=== PATIENT | female | born 1975 | race Caucasian/White ===

== ENCOUNTER 2019-03-18 01:20 | Emergency (ER) | payer OTHER ==
[2019-03-18] MEDS ORDERED: Ondansetron PF 4 MG/2 ML Vial ONE ×2 (01:40→02:17)
[2019-03-18] MEDS ORDERED: Sodium Chloride 0.9% 1,000 ML ONE ×2 (01:40→04:51)
[2019-03-18] MEDS ORDERED: Ketorolac Tromethamine 30 MG/ML VIAL ONE (01:50)
[2019-03-18] MEDS ORDERED: Morphine 4 MG/ML VIAL ONE (02:12)
[2019-03-18 02:13] LABS: ALT (SGPT) 42 U/L (8-55); AST (SGOT) 24 U/L (5-34); Albumin 5.1 g/dL (3.5-5.0); Anion Gap 20 mmol/L (10-20); BHCG - Serum Negative (NEGATIVE); BUN (Urea Nitrogen) 21 mg/dL (7.0-18.7); Bilirubin, Total 0.3 mg/dL (0.2-1.2); Calc. Creatinine Clearance 0 mL/min (70-130); Calcium 10.7 mg/dL (7.8-10.44); Carbon Dioxide 24 mmol/L (22-29); Chloride 97 mmol/L (98-107); Estimated GFR-MDRD 51; Glucose 245 mg/dL (70-105); Lipase 46 U/L (8-78); Pregs Control Background? CLEAR/WHITE (CLR/WHITE); Pregs Control Bar Appear? YES (CONTROL BAR); Protein, Total 9.1 g/dL (6.0-8.3); Sodium 138 mmol/L (136-145)
[2019-03-18 02:15] LABS: Hemoglobin 15.4 g/dL (12.0-16.0); Mean Corpuscular HGB CONC 33.1 g/dL (32.0-36.0); Mean Corpuscular Hemoglobin 29.9 pg (27.0-31.0); Mean Corpuscular Volume 90.3 fL (78.0-98.0); Mean Platelet Volume 7.6 fL (7.4-10.4); Platelet Count 250 thou/uL (130-400); Potassium 2.6 mmol/L (3.5-5.1); RBC Distribution Width 11.3 % (11.5-14.5); Red Blood Cell (RBC) Count 5.15 mill/uL (4.20-5.40)
[2019-03-18 02:20] LABS: Manual Diff?? YES
[2019-03-18 02:21] LABS: Band 8 % (5-11); Delete Auto Diff?? YES; Lymphocytes 12 % (21-51); MDiff Complete? YES; Monocytes 1 % (0-10); Neutrophil 79 % (42-75)
[2019-03-18] MEDS ORDERED: Potassium Chloride 20 MEQ TAB ONE ×2 (02:27→04:51)
[2019-03-18 02:31] LABS: Alkaline Phosphatase 146 U/L (40-150)
[2019-03-18] MEDS ORDERED: Loperamide HCl 2 MG CAP ONE (05:12)
[2019-03-18 06:06] LABS: Anion Gap 13 mmol/L (10-20)
[2019-03-18 06:09] LABS: BUN (Urea Nitrogen) 26 mg/dL (7.0-18.7); Calc. Creatinine Clearance 0 mL/min (70-130); Calcium 8.2 mg/dL (7.8-10.44); Carbon Dioxide 24 mmol/L (22-29); Chloride 106 mmol/L (98-107); Estimated GFR-MDRD 73; Glucose 124 mg/dL (70-105); Potassium 2.9 mmol/L (3.5-5.1); Sodium 140 mmol/L (136-145)
--- NOTE | 2019-03-18 07:34 | CT ---
PRELIMINARY REPORT: CT Abdomen and Pelvis With Contrast EXAM DATE/TIME: 03/18/2019 3:30 AM CLINICAL HISTORY: 44 years old, female; Abdominal pain; Patient HX: Epigastric sleeve. PT having epigastric pain TECHNIQUE: Imaging protocol: Axial computed tomography images of the abdomen and pelvis with intravenous contrast. Radiation optimization: All CT scans at this facility use at least one of these dose optimization techniques: automated exposure control; mA and/or kV adjustment per patient size (includes targeted exams where dose is matched to clinical indication); or iterative reconstruction. Contrast material: ISOVUE 370; Contrast volume: 96 ml; Contrast route: RT ARM; COMPARISON: No relevant prior studies available. FINDINGS: Lungs: The visualized portions of the lung bases are normal. ABDOMEN: Liver: There are no focal liver lesions identified. Gallbladder and bile ducts: There has been a cholecystectomy. There is a mild, expected degree of intrahepatic and common bile duct dilation. Pancreas: The pancreas appears normal. No ductal dilatation. Spleen: The spleen is normal. Adrenals: The adrenal glands are normal. Kidneys and ureters: The kidneys appear normal. No hydronephrosis. Stomach and bowel: Patient may be post with sleeve gastrectomy. Remaining stomach is normal. The duodenum is unremarkable. There is marked intraluminal fluid within the colon suggestive of diarrheal illness. Appendix: A normal appendix is identified. PELVIS: Bladder: The bladder is normal. Reproductive: Unremarkable as visualized. ABDOMEN and PELVIS: Intraperitoneal space: Normal. No free air. No significant fluid collection. Bones/joints: No acute fracture. No dislocation. Soft tissues: Unremarkable. Vasculature: Normal. No abdominal aortic aneurysm. Lymph nodes: Normal. No enlarged lymph nodes. IMPRESSION: There is marked intraluminal fluid within the colon suggestive of diarrheal illness. Thank you for allowing us to participate in the care of your patient. Dictated and Authenticated by: Bernardo Cohen MD 03/18/2019 4:34 AM Central Time ([place] & [place]) FINAL REPORT: CT abdomen and pelvis with IV contrast I agree with preliminary report given by Dr. Bernardo Cohen. Transcribed Date/Time: 03/18/2019 8:27 AM
[2019-03-18 07:40] LABS: Anion Gap 14 mmol/L (10-20); BUN (Urea Nitrogen) 27 mg/dL (7.0-18.7); Calc. Creatinine Clearance 0 mL/min (70-130); Calcium 7.9 mg/dL (7.8-10.44); Carbon Dioxide 23 mmol/L (22-29); Chloride 107 mmol/L (98-107); Estimated GFR-MDRD 74; Glucose 134 mg/dL (70-105); Potassium 3.2 mmol/L (3.5-5.1); Sodium 141 mmol/L (136-145)
[2019-03-18] MEDS ORDERED: Iopamidol 370 76% 100 ML VIAL ONE (14:13)
== END 2019-03-18 08:03 | disposition home or self-care (01) ==
LOC: MADERS 01:20
DX: E87.6 Hypokalemia (principal); R10.13 Epigastric pain; I10 Essential (primary) hypertension
CPT/HCPCS: 36415; 36416; 74177; 80053; 83690; 84484; 84703; 85025; 87324; 87449; 93005; 96361; 96374; 96375; 96376; J1885; J2270; J2405; J7050; Q9967